=== PATIENT | female | born 1985 | race Caucasian/White ===

== ENCOUNTER 2018-05-24 13:00 | Day surgery (SDC) | payer OTHER ==
[2018-05-24 13:39] VITALS: BMI 20.6
[2018-05-24 14:48] LABS: Bilirubin Negative (Negative); Blood, Urine Negative (Negative); Clarity CLEAR (Clear); Glucose, Urine (Dipstick) Negative (Negative); Leukocyte Small (Negative); Nitrite Negative (Negative); Protein, Urine (Dipstick) Negative (Neg-Trace); Urobilinogen 0.2 mg/dL (0.2-1.0)
[2018-05-24 14:50] LABS: Pathc Cast-AUWi Flag 0.14 (0-2.49)
[2018-05-24 14:53] LABS: Specific Gravity, Urine 1.001 (1.002-1.036)
[2018-05-24 15:09] LABS: Bacteria/HPF Rare-Few HPF (None Seen); Hyaline Casts/LPF NONE SEEN LPF (0-3 Hyaline); RBC/HPF 0-3 HPF (0-3); Squamous Epithelial 0-3 HPF (0-3); WBC/HPF 0-3 HPF (0-3)
[2018-05-24 15:21] LABS: FFN Internal QC Analyzer PASS (PASS); FFN Internal QC Cassette PASS (PASS); Fetal Fibronectin Negative (Negative)
--- NOTE | 2018-05-24 22:23 | PRG ---
OB ER ENCOUNTER DATE OF SERVICE: 05/24/2018 PRIMARY POLICE JUSTICE: Dr. Sina Carpio. CHIEF COMPLAINT: Abdominal pains. HISTORY OF PRESENT ILLNESS: The patient is a 32-year-old, female with an intrauterine pregnanc y at 31 weeks and 4 days, who is presenting to Labor and Delivery with sharp abdominal pains in her l ower abdomen radiating to her back that have been present since lifting a 5-gallon bucket of water to take out to the chickens. Patient reports that the pains come and go, but also reports the pain as sharp and radiating to her back. The patient reports the pain is constant with exacerbations that sh e is often able to be distracted from the pain, but sometimes can feel more severely. The patient de nies any fever, fall, headache, chest pain, shortness of breath, nausea, vomiting, diarrhea, or const ipation. Denies any leakage of fluid, any urinary urgency or frequency. Denies any new rash. Denie s vaginal bleeding. Denies musculoskeletal pains. PAST MEDICAL HISTORY: Positive for history of headaches. PAST SURGICAL HISTORY: Negative. SOCIAL HISTORY: Denies drug, alcohol, or tobacco use. ALLERGIES: No known drug allergies. MEDICATIONS: vitamins. OBSTETRIC HISTORY: The patient has a history of IUGR. OBSTETRIC LABORATORY DATA: Blood type is O positive. Glucola screen 109. Hepatitis B surface antig en nonreactive, HIV nonreactive, both in the first trimester RPR antibody testing and syphilis antibo dy testing are nonreactive, blood type is O positive, antibody screen is negative. She is rubella im mune. GC and chlamydia are negative. REVIEW OF SYSTEMS: Per HPI. PHYSICAL EXAMINATION: VITAL SIGNS: Blood pressure 136/87, heart rate 96, respiratory rate of 18, temperature 98.2. GENERAL: She appears to be in no acute distress. She is alert and oriented, cooperative and pleasan t to interact with. HEENT: Head: Normocephalic, atraumatic. LUNGS: Clear to auscultation bilaterally. HEART: Regular rate and rhythm. ABDOMEN: Gravid and soft. Uterus is soft, nontender with palpation and movement. No contractions p alpable during the exam. EXTREMITIES: Nontender, nonedematous. Vulva is without masses, lesions, or erythema. She does have some minimal discharge. Cervix is fingertip and thick on digital exam. heart tracing performed for abdominal pain in noted to be a baseline in the 130s with moderate long-term variability and positive 15 x 15 accelerations. Tocometer showing some irritabil ity, though not consistently felt by the patient. A fibronectin was collected and negative. Urinalysis: Negative nitrites, negative bacteria, n egative blood, negative ketones, negative white blood cells, negative squamous cells, rare to few sandy teria. Vaginitis screen positive for bacterial vaginosis, negative for vitor or trichomonas. ASSESSMENT AND PLAN: The patient is a 32-year-old female who presented with abdominal pains in pregn douglas, likely musculoskeletal in nature given the probable source of exertion with lifting a 5-gallon bucket of water. She has no evidence of labor at this time, has a negative fibronectin, but do es have bacterial vaginosis for which she has been prescribed metronidazole 500 mg to be taken twice a day for the next 7 days. The patient's urinalysis shows small leukocyte esterase and rare bacteria , no white blood cells present. No nitrites present. At this time, we will not be treating for urin malia tract infection. Patient has been discharged to home. She has instructions to follow up with he r primary OB, Dr. Carpio as scheduled.
== END 2018-05-24 15:41 | disposition home or self-care (01) ==
LOC: L&D/OP 13:00
PROVIDERS: ATTEND Obstetrics & Gynecology
DX: O99.89 Other specified diseases and conditions complicating pregnancy, childbirth and the puerperium (principal); R10.30 Lower abdominal pain, unspecified; O23.593 Infection of other part of genital tract in pregnancy, third trimester; B96.89 Other specified bacterial agents as the cause of diseases classified elsewhere; Z3A.31 31 weeks gestation of pregnancy; Z79.899 Other long term (current) drug therapy
CPT/HCPCS: 81001; 82731; 87480; 87510; 87660; 99284

== ENCOUNTER 2018-07-05 14:05 | Inpatient (IN) | payer OTHER ==
[2018-07-05 14:53] VITALS: BMI 21.4
[2018-07-05] MEDS ORDERED: Ondansetron PF 4 MG/2 ML Vial IVP PRN ×2 (15:11→16:00)
[2018-07-05] MEDS ORDERED: Magnesium Sulfate 20 gm/500 ml 20 GM/500 ML BAG IVPB SCH (16:00)
[2018-07-05] MEDS ORDERED: Calcium Gluc 4.6 MEQ/10 ML (100 MG/ML) SLOW IVP PRN (16:00)
[2018-07-05] MEDS ORDERED: Magnesium Sulfate 20 GM/WATER 500 ML BAG IVPB SCH (16:00)
[2018-07-05] MEDS ORDERED: HYDROcodone/Acetaminophen 5/325 mg Tablet PO PRN (16:00)
[2018-07-05] MEDS ORDERED: Lidocaine 1% (PF) 30 ML VIAL SC PRN (16:00)
[2018-07-05] MEDS ORDERED: Labetalol HCl 100 MG/20 ML VIAL SLOW IVP PRN (16:04)
[2018-07-05] MEDS ORDERED: NS w/ Oxytocin 10 units 500 ML IV SCH (16:15)
[2018-07-05] MEDS ORDERED: Penicillin G Potassium 5 MILL.UNITS in Sodium Chloride 0.9% 100 ML IVPB SCH (16:30)
[2018-07-05] MEDS ORDERED: Sodium Chloride 0.9% 100 ML ONE (16:45)
[2018-07-05] MEDS ORDERED: Penicillin G Potassium 5 MILL.UNITS VIAL ONE (16:45)
--- NOTE | 2018-07-05 16:46 | PDOC.LDHP ---
Labor and Delivery H&P Chief complaint: contractions, other (increased BP at home) HPI: Pt is a 32yo @ 37.4 weeks with contractions and elevated BP at home 150- 170 systolic. NIXON earlier today that has diminished. Current gestational age (weeks): 37 Due date: 07/22/18 Grav: 2 Para: 1 OB History Details: 2015, after IOL for IUGR w PIH noted at delivery, severe w magnesium Current complications: none Abnormal US findings: No Past Medical History: headaches Current medications: pre- vitamins Previous surgical history: none Allergies/Adverse Reactions: Allergies Allergy/AdvReac Type Severity Reaction Status Date / Time No Known Allergies Allergy Verified 07/05/18 14:46 Social history: none - Physical Exam Abnormal vital signs: BP 150s/70-80s General: NAD, breathing through contractions Heart: RRR Lungs: CTAB Abdomen: gravid Extremeties: no edema FHT: category 1 [place] contractions every: 3-5 - OB Labs Blood type: O RH: positive Antibody Screen: negative HIV: negative RPR: negative HEPSAg: negative 1 hour GCT: negative GBS: positive Rubella: immune - Assessment L&D Assessment: term patient in labor (w elevated BPs) - Plan Plan: admit to L&D, labor augmentation if indicated, GBS antibiotic prophylaxis , informed consent obtained, magnesium for seizure prophylaxis (for severe features), anesthesia consult for pain management -: A/P: 32yo @ 37.4 weeks with early labor and elevated BP. Sustained mild range BP with isolated severe range noted during contraction. Discussed magnesium for seizure prophylaxis if severe features/sustained elevation in BP.
[2018-07-05] MEDS ORDERED: Acetaminophen 500 MG TAB PO PRN (16:49)
[2018-07-05] MEDS: Lactated Ringer's 1,000 ML IV SCH (17:04)
[2018-07-05 17:37] LABS: Mean Corpuscular HGB CONC 33.5 g/dL (32.0-36.0); Mean Corpuscular Hemoglobin 29.5 pg (27.0-31.0); Mean Corpuscular Volume 87.9 fL (78.0-98.0); Mean Platelet Volume 9.2 fL (7.4-10.4); Platelet Count 201 thou/uL (130-400); RBC Distribution Width 15.9 % (11.5-14.5); Red Blood Cell (RBC) Count 4.06 mill/uL (4.20-5.40); White Blood Cell (WBC) Count 11.4 thou/uL (4.8-10.8)
[2018-07-05 18:19] LABS: HBSAg Index 0.22 S/CO (0-0.99); Hep B Surf Ag Non-Reactive S/CO (NonReactive); Syphilis Antibody Nonreactive (Nonreactive); Syphilis Antibody Index 0.04 S/CO (<1.00 Non-Reactive)
[2018-07-05 18:20] LABS: ALT (SGPT) 14 U/L (8-55); AST (SGOT) 17 U/L (5-34); Albumin 3.8 g/dL (3.5-5.0); Alkaline Phosphatase 167 U/L (40-150); Anion Gap 15 mmol/L (10-20); BUN (Urea Nitrogen) 9 mg/dL (7.0-18.7); Bilirubin, Total 0.4 mg/dL (0.2-1.2); Calc. Creatinine Clearance 114 mL/min (70-130); Calcium 9.5 mg/dL (7.8-10.44); Carbon Dioxide 20 mmol/L (22-29); Chloride 107 mmol/L (98-107); Estimated GFR-MDRD Greater than 90; Globulin 2.7 g/dL (2.4-3.5); Glucose 77 mg/dL (70-105); Potassium 4.8 mmol/L (3.5-5.1); Protein, Total 6.5 g/dL (6.0-8.3); Sodium 137 mmol/L (136-145); Uric Acid 2.7 mg/dL (2.6-6.0)
[2018-07-05] MEDS: Penicillin G 2.5 MILL.units 2.5 MILL.UNITS in Premix Bag 1 BAG IVPB SCH ×2 (19:51→21:00)
[2018-07-06] MEDS ORDERED: Fentanyl 4 mcg/Bup 0.1% Cadd 100 ML ONE (02:25)
[2018-07-06] MEDS: Penicillin G 2.5 MILL.units 2.5 MILL.UNITS in Premix Bag 1 BAG IVPB SCH ×3 (02:28→12:01)
[2018-07-06] MEDS: Lactated Ringer's 1,000 ML IV SCH ×2 (02:28→12:01)
[2018-07-06] MEDS ORDERED: Ondansetron PF 4 MG/2 ML Vial IVP PRN ×2 (02:59→09:58)
[2018-07-06] MEDS ORDERED: ePHEDrine/0.9% NaCl/PF SYRINGE 50 mg/10 ml SLOW IVP PRN (02:59)
[2018-07-06] MEDS ORDERED: Acetaminophen 325 MG TAB PO PRN (02:59)
[2018-07-06] MEDS ORDERED: diphenhydrAMINE 50 MG/ML VIAL IVP PRN (02:59)
[2018-07-06] MEDS ORDERED: Naloxone HCl 0.4 mg/ml Vial IVP PRN ×2 (02:59)
[2018-07-06] MEDS ORDERED: Promethazine HCl 25 MG/ML VIAL IM PRN (02:59)
[2018-07-06] MEDS ORDERED: Lactated Ringer's 500 ML IV PRN (02:59)
[2018-07-06] MEDS ORDERED: Eucerin (Mineral Oil/Petrolatum,White) 30 gm Jar TOP PRN (02:59)
[2018-07-06] MEDS ORDERED: Communication Order-Pharmacy FS SCH (03:00)
[2018-07-06] MEDS ORDERED: Fentanyl 4 mcg/Bupivacaine 0.1% Cassette 100 ML EPIDURAL SCH (03:00)
[2018-07-06] MEDS: NS / Oxytocin 40 units/1000ml 1,000 ML IV PRN ×2 (05:55→09:56)
--- NOTE | 2018-07-06 05:57 | PDOC.OPDEL ---
OB Operative/Delivery Note Delivery Dr/Surgeon: Balaji Pre-Delivery Diagnosis: medically indicated induction (PIH) Weeks gestation: 37 Anesthesia: epidural - Findings A Sex: male - Additional Findings/Plan Placenta delivered: spontaneous Estimated blood loss: 200ml, QBL pending Post delivery plan: routine recovery
[2018-07-06] MEDS ORDERED: Ferrous Sulfate 325 MG TAB PO SCH ×2 (08:00→10:15)
[2018-07-06] MEDS ORDERED: Prenatal Vitamin 1 TAB PO SCH ×2 (09:00→10:15)
[2018-07-06] MEDS ORDERED: Benzocaine/Menthol 20-0.5% 60 ML CAN TOP PRN (09:58)
[2018-07-06] MEDS ORDERED: Lanolin Ointment 7 GM TUBE TOP PRN (09:58)
[2018-07-06] MEDS ORDERED: NS / Oxytocin 40 units/1000ml 1,000 ML IV SCH (09:58)
[2018-07-06] MEDS ORDERED: HYDROcodone/Acetaminophen 5/325 mg Tablet PO PRN ×2 (09:58)
[2018-07-06] MEDS ORDERED: Bisacodyl 10 MG SUPP PR PRN (09:58)
[2018-07-06] MEDS ORDERED: Milk Of Magnesia 30 ML UDCUP PO PRN (09:58)
[2018-07-06] MEDS ORDERED: Adacel (T-DAP) 0.5 ML VIAL IM ONE (09:58)
[2018-07-06] MEDS ORDERED: diphenhydrAMINE 25 MG CAP PO PRN (09:58)
[2018-07-06] MEDS ORDERED: Preparation H Ointment 28 GM TUBE PR PRN (09:58)
[2018-07-06] MEDS ORDERED: Docusate Calcium (SURFAK) 240 MG CAP PO SCH (10:15)
[2018-07-06] MEDS: Ibuprofen 800 MG TAB PO SCH ×2 (12:16→13:33)
[2018-07-06] MEDS: Ferrous Sulfate 325 MG TAB PO SCH (13:33)
[2018-07-06] MEDS: Docusate Calcium (SURFAK) 240 MG CAP PO SCH (22:15)
[2018-07-07] MEDS: Ibuprofen 800 MG TAB PO SCH ×4 (06:24→22:35)
[2018-07-07] MEDS ORDERED: Bupivacaine/Epinephrine 0.25% 30 ML VIAL ONE (09:51)
--- NOTE | 2018-07-07 10:10 | PDOC.PP ---
Post Progress Note Post Day #: 1 Subjective: No concerns, no PIH sx, nursing well, request DC home this PM if baby DC Flatus: yes Ambulation: yes Vital Signs (12 hours) Temp Pulse Resp BP Pulse Ox 07/07/18 07:42 98.3 F 75 18 122/78 98 07/07/18 03:42 97.9 F 84 18 124/89 Weight Weight 133 lb - Physical Examination General: NAD Respiratory: non-labored breathing Abdominal: no distention Fundus firm & at: below umb Extremities: negative homans (B) Neurological: no gross focal deficits Psychiatric: A&Ox3, normal affect Result Diagrams: 07/05/18 17:18 07/05/18 17:18 Additional Labs: Post Labs Blood Type O POSITIVE 07/05/18 17:18 Hep Bs Antigen Non-Reactive S/CO (NonReactive) 07/05/18 17:18 (1) Preeclampsia Code(s): O14.90 - UNSPECIFIED PRE-ECLAMPSIA, UNSPECIFIED TRIMESTER Status: Acute (2) 37 weeks gestation of Code(s): Z3A.37 - 37 WEEKS GESTATION OF Status: Acute (3) Vaginal delivery Code(s): O80 - ENCOUNTER FOR FULL-TERM UNCOMPLICATED DELIVERY Status: Acute - Assessment/Plan PPD1 doing well, BP normal, no PIH sx, request DC later this afternoon if BP remain normal.
[2018-07-07] MEDS: Ferrous Sulfate 325 MG TAB PO SCH ×2 (10:30→18:28)
[2018-07-07] MEDS: Prenatal Vitamin 1 TAB PO SCH (10:31)
[2018-07-07] MEDS: Docusate Calcium (SURFAK) 240 MG CAP PO SCH ×2 (10:31→22:35)
--- NOTE | 2018-07-08 01:29 | PDOC.EVN ---
Event Note - Event Note Event Note: BP checks: Vitals reviewed. Bps were 150/90s but last BP was 123/69. We will follow BPs for now.
--- NOTE | 2018-07-08 05:57 | PDOC.PP ---
Post Progress Note Post Day #: 2 Subjective: No NIXON, no visual changes PO intake tolerated: yes Flatus: yes Ambulation: yes Vital Signs (12 hours) Temp Pulse Resp BP BP BP Pulse Ox 07/08/18 04:03 77 18 111/74 07/08/18 00:20 69 16 123/69 07/07/18 19:35 98.0 F 78 18 141/95 H 98 Weight Weight 133 lb Most recent BPs were 120/60s-110/70s this am - Physical Examination General: NAD Cardiovascular: no m/r/g Respiratory: clear to auscultation bilaterally, non-labored breathing Abdominal: + bowel sounds, lochia Extremities: negative homans (B) Neurological: no gross focal deficits Psychiatric: A&Ox3, normal affect Result Diagrams: 07/05/18 17:18 07/05/18 17:18 Additional Labs: Post Labs Blood Type O POSITIVE 07/05/18 17:18 Hep Bs Antigen Non-Reactive S/CO (NonReactive) 07/05/18 17:18 (1) PIH ( induced hypertension) Code(s): O13.9 - GESTATIONAL HTN W/O SIGNIFICANT PROTEINURIA, UNSP TRIMESTER Status: Acute (2) Vaginal delivery Code(s): O80 - ENCOUNTER FOR FULL-TERM UNCOMPLICATED DELIVERY Status: Acute - Assessment/Plan PPD2 with labile BPs yesterday with sysolics in the 150s. This AM BPs are normal range. Last delivery she required MagSulfate. Mag not given this . we will observe for today and follow BPs. She agres to stay until tomorrow 07/09 for possible DC then (72 hr BP obs due to yesterday's pressures). Not on antihypertensive meds currently.
[2018-07-08] MEDS: Ferrous Sulfate 325 MG TAB PO SCH (08:51)
[2018-07-08] MEDS: Prenatal Vitamin 1 TAB PO SCH (08:52)
[2018-07-08] MEDS: Docusate Calcium (SURFAK) 240 MG CAP PO SCH (08:52)
[2018-07-08 12:49] VITALS: BP 142/87; TEMP 98
== END 2018-07-08 15:25 | disposition home or self-care (01) | DRG 807 ==
LOC: L&D/OP 14:05 → L&D 16:31 → 3SE 07-06 10:11
PROVIDERS: ADMIT Obstetrics & Gynecology; ATTEND Obstetrics & Gynecology
PROC: 10E0XZZ Delivery of Products of Conception, External Approach (ICD-10-PCS; principal; 2018-07-06)
DX: O13.4 Gestational [pregnancy-induced] hypertension without significant proteinuria, complicating childbirth (principal); Z37.0 Single live birth; Z3A.39 39 weeks gestation of pregnancy; O36.5930 Maternal care for other known or suspected poor fetal growth, third trimester, not applicable or unspecified
CPT/HCPCS: 51702; 80053; 81003; 82570; 84156; 84550; 85027; 86780; 86850; 86900; 86901; 87340; 99285; J2540; J7050